=== PATIENT | male | born 1940 | race Caucasian/White ===

== ENCOUNTER → 2017-11-13 | Outpatient (CLI) | payer MEDICARE, OTHER ==
[2017-11-13 15:45] LABS: ALBUMIN 4.2 g/dL (3.5-5.0); CALCIUM 8.9 mg/dL (8.4-10.2); POTASSIUM 4.5 mmol/L (3.6-5.0); TOTAL BILIRUBIN 0.3 mg/dL (0.2-1.3); TOTAL PROTEIN 7.2 g/dL (6.3-8.2)
[2017-11-13 17:16] LABS: HEMATOCRIT 44.7 % (42.0-52.0); HEMOGLOBIN 14.4 g/dL (13.5-18.0); MEAN CELL VOLUME 94 fl (78-100); MEAN CORPUSCULAR HEMOGLOBIN 30 pg (27-31); MEAN CORPUSCULAR HGB CONC 32 g/dL (33-37); MEAN PLATELET VOLUME 10.7 fl (7.4-10.4); PLATELET COUNT 242 K/mm3 (130-400); RED BLOOD COUNT 4.76 M/mm3 (4.20-5.60); RED CELL DISTRIBUTION WIDTH 14.3 % (11.5-14.5); WHITE BLOOD COUNT 8.1 K/mm3 (4.8-10.8)
[2017-11-13 18:12] LABS: ERYTHROCYTE SEDIMENTATION RATE 13 mm/hr (0-20); LYMPHOCYTE 28 % (20-51); MONOCYTE 9 % (3-10); NEUTROPHILS 56 % (42-75)
== END ==
LOC: RAD 14:21
PROVIDERS: Internal Medicine
DX: R05 Cough (principal); R06.02 Shortness of breath

== ENCOUNTER → 2018-03-12 | Outpatient (CLI) | payer MEDICARE, OTHER | LOC: RAD 12:07 | DX: M17.11 Unilateral primary osteoarthritis, right knee (principal) ==

== ENCOUNTER → 2018-05-23 | Outpatient (CLI) | payer MEDICARE, OTHER ==
[~2018-05-23] VITALS: Ht 175.3 cm; Wt 117.3 kg
[~2018-05-23] MED LIST: AUGMENTIN 875-1 EAC1 PO; GOOD SENSE ASPI81 M1 PO; PREDNISONE10 MG PO; SINGULAIR PO; XYZAL5 MG PO; ZITHROMAX500 M2 PO
[2018-05-23 12:38] LABS: EOS # 0.5 (0.04-0.40); EOS % 4.9 % (0.0-4.0); HEMATOCRIT 44.9 % (42.0-52.0); HEMOGLOBIN 14.3 g/dL (13.5-18.0); LYMPH# 2.1 (1.50-4.00); MEAN CELL VOLUME 94 fl (78-100); MEAN CORPUSCULAR HEMOGLOBIN 30 pg (27-31); MEAN CORPUSCULAR HGB CONC 32 g/dL (33-37); MEAN PLATELET VOLUME 9.4 fl (7.4-10.4); NEU # 5.7 (1.40-6.50); PLATELET COUNT 266 K/mm3 (130-400); RED BLOOD COUNT 4.78 M/mm3 (4.20-5.60); WHITE BLOOD COUNT 9.4 K/mm3 (4.8-10.8)
[2018-05-23 12:45] VITALS: BP 136/80
[2018-05-23 12:50] LABS: ALBUMIN 4.2 g/dL (3.5-5.0); CALCIUM 9.2 mg/dL (8.4-10.2); POTASSIUM 4.5 mmol/L (3.6-5.0); TOTAL BILIRUBIN 0.4 mg/dL (0.2-1.3); TOTAL PROTEIN 7.6 g/dL (6.3-8.2)
[2018-05-23 13:49] LABS: URINE APPEARANCE CLEAR; URINE COLOR YELLOW; URINE GLUCOSE NEGATIVE (NEGATIVE); URINE PROTEIN(semi-quant) TRACE mg/dL (NEGATIVE)
[2018-05-23 13:50] LABS: URINE BILIRUBIN NEGATIVE (NEGATIVE); URINE BLOOD NEGATIVE (NEGATIVE); URINE KETONE NEGATIVE (NEGATIVE); URINE LEUKOCYTE ESTERASE NEGATIVE (NEGATIVE); URINE NITRATE NEGATIVE (NEGATIVE); URINE UROBILINOGEN NORMAL (NORMAL); URINE WBC 0-1 /hpf (0-3)
[2018-05-23 13:52] LABS: ERYTHROCYTE SEDIMENTATION RATE 22 mm/hr (0-20)
[2018-05-23 23:07] LABS: IGM,SERUM 77 mg/dL (22-240); IMMUNOGLOBULIN A 363 mg/dL (101-645); IMMUNOGLOBULIN G 1079 mg/dL (540-1822)
[2018-05-23 23:24] LABS: TESTOSTERONE 361 ng/dL (221-716)
== END ==
LOC: LAB 12:19
PROVIDERS: Internal Medicine
DX: Z12.5 Encounter for screening for malignant neoplasm of prostate (principal); J18.9 Pneumonia, unspecified organism; E78.2 Mixed hyperlipidemia
CPT/HCPCS: Q9967

== ENCOUNTER → 2020-11-04 | Outpatient (CLI) | payer MEDICARE, OTHER | LOC: LAB 17:15 | DX: U07.1 COVID-19 (principal) ==

== ENCOUNTER → 2020-11-08 | Outpatient (CLI) | payer MEDICARE, OTHER ==
[2020-11-08] VITALS (8 sets, daily range): BP systolic 122–166; BP diastolic 72–100
[~2020-11-08] VITALS: Ht 175.3 cm; Wt 117.3 kg
== END ==
LOC: AMSURD 12:49
DX: U07.1 COVID-19 (principal)
CPT/HCPCS: M0243; Q0244

== ENCOUNTER → 2021-01-11 | Outpatient (CLI) | payer MEDICARE, OTHER ==
[2021-01-11 11:49] LABS: BASO # 0.05 K/mm3 (0.02-0.10); EOS # 0.35 K/mm3 (0.04-0.40); EOS % 4.7 % (0.0-4.0); HEMATOCRIT 43.7 % (42.0-52.0); HEMOGLOBIN 14.1 g/dL (13.5-18.0); LYMPH# 1.71 K/mm3 (1.50-4.00); MEAN CELL VOLUME 95 fl (78-100); MEAN CORPUSCULAR HEMOGLOBIN 31 pg (27-31); MEAN CORPUSCULAR HGB CONC 32 g/dL (33-37); MEAN PLATELET VOLUME 9.4 fl (7.4-10.4); MONO # 0.94 K/mm3 (0.20-0.80); NEU # 4.42 K/mm3 (1.40-6.50); PLATELET COUNT 199 K/mm3 (130-400); RED BLOOD COUNT 4.59 M/mm3 (4.20-5.60); RED CELL DISTRIBUTION WIDTH 13.5 % (11.5-14.5); WHITE BLOOD COUNT 7.5 K/mm3 (4.8-10.8)
[2021-01-11 12:02] LABS: POTASSIUM 4.4 mmol/L (3.5-5.1)
[2021-01-11 12:03] LABS: ALBUMIN 3.9 g/dL (3.4-4.8)
[2021-01-11 12:04] LABS: CALCIUM 8.9 mg/dL (8.3-10.5)
[2021-01-11 12:05] LABS: TOTAL PROTEIN 7.2 g/dL (6.2-8.1)
[2021-01-11 12:07] LABS: TOTAL BILIRUBIN 0.3 mg/dL (0.2-1.2)
[2021-01-11 13:38] LABS: ERYTHROCYTE SEDIMENTATION RATE 19 mm/hr (0-20)
== END ==
LOC: LAB 11:26
PROVIDERS: Internal Medicine
DX: Z12.5 Encounter for screening for malignant neoplasm of prostate (principal); E78.2 Mixed hyperlipidemia; K90.9 Intestinal malabsorption, unspecified

== ENCOUNTER → 2021-02-03 | Outpatient (CLI) | payer MEDICARE, OTHER | LOC: VAS 10:56 → RAD 11:00 | DX: R06.00 Dyspnea, unspecified (principal) ==

== ENCOUNTER 2021-02-12 14:03 | Emergency (ER) | payer MEDICARE, OTHER ==
[~2021-02-12] VITALS: Ht 177.8 cm; Wt 127.1 kg
== END 2021-02-12 16:41 | disposition expired ==
LOC: ED 14:03
DX: R05.9 Cough, unspecified (principal)
CPT/HCPCS: J0171